=== PATIENT | male | born 1945 | race Caucasian/White ===

== ENCOUNTER → 2024-04-05 10:47 | Outpatient (BNVA) | payer MEDICARE, BC, SELFPAY | PROVIDERS: PCP Internal Medicine; Referring Provider Internal Medicine; Visit Provider Surgery | DX: R13.10 Dysphagia, unspecified (principal); K30 Functional dyspepsia; G89.4 Chronic pain syndrome; R63.0 Anorexia | CPT/HCPCS: 99215 ==